=== PATIENT | male | born 1995 | race Two or more races ===

== ENCOUNTER 2019-07-08 06:38 | Emergency (ER) | payer OTHER ==
[2019-07-08] MEDS ORDERED: Ibuprofen 600 MG Tab PO ONE (07:13)
[2019-07-08] MEDS ORDERED: Amoxicillin/Clavulanate K 875-125 MG Tab PO STA (07:13)
[2019-07-08] MEDS ORDERED: Diphtheria,Pertussis(Acell),Tetanus Vaccine 0.5 ML Syringe IM ONE (07:14)
--- NOTE | 2019-07-08 07:15 | EDM.PDOC ---
ED HPI GENERAL MEDICAL PROBLEM - General Chief Complaint: Upper Extremity Injury/Pain Stated Complaint: hand injury Time Seen by Provider: 07/08/19 06:58 Source of Information: Reports: Patient History Limitations: Reports: No Limitations - History of Present Illness INITIAL COMMENTS - FREE TEXT/NARRATIVE: Mr. Cortez is a very pleasant 23-year-old man with no chronic medical problems, who states that he accidentally drilled into his left hand with a drill bit at work around 06:00 this morning. He presents with a puncture wound to his left thenar eminence. The wound is small, and not currently bleeding. Patient estimates that the drill may have penetrated about 1 inch into his muscle. The patient states that there is a possibility that there are woodchips in the wound. He is otherwise uninjured. The patient does not recall when his last tetanus vaccination was. The patient's PCP was ZHAO Quiroga. He received an influenza vaccine this season. Left Hand Pain Score (Numeric/FACES): 3 - Related Data Allergies Allergy/AdvReac Type Severity Reaction Status Date / Time Sulfa (Sulfonamide Allergy Rash Verified 07/08/19 06:50 Antibiotics) Home Meds: Home Meds Amoxicillin/Clavulanate K [Augmentin 875-125 MG] 1 tab PO Q12H #19 tablet [Rx] Past Medical History - Past Surgical History HEENT Surgical History: Reports: Tonsillectomy Social & Family History - Tobacco Use Smoking Status *Q: Never Smoker Tobacco Use Within Last Twelve Months: Vaping (nicotine) - Alcohol Use Alcohol Use History: Yes Alcohol Use Frequency: Rarely (every other month) - Recreational Drug Use Recreational Drug Use: No - Living Situation & Occupation Living situation: Reports: Single, Alone Occupation: Employed ([employer]) Review of Systems - Review of Systems Review Of Systems: Comprehensive ROS is negative, except as noted in HPI. ED EXAM, GENERAL - Physical Exam Exam: See Below Exam Limited By: No Limitations General Appearance: Alert, WD/WN, No Apparent Distress Extremities: Other (Small puncture wound to the patient's left thenar eminence. Not actively bleeding. The patient is able to move his thumb without significant difficulty, although there is some pain when he moves his thumb. No tingling or numbness to the left thumb or hand. Vascular supply of the left upper extremity is intact.) Course - Vital Signs Last Recorded V/S: Last Vital Signs Temp 36.2 C 07/08/19 06:47 Pulse 80 07/08/19 06:47 Resp 16 07/08/19 06:47 BP 132/75 07/08/19 06:47 Pulse Ox 100 07/08/19 06:47 - Orders/Labs/Meds Orders: Active Orders 24 hr Category Date Time Status Vaccines to be Administered [RC] PER UNIT ROUTINE Care 07/08/19 07:14 Active Hand 2V Lt [CR] Stat Exams 07/08/19 06:50 Taken Meds: Medications Discontinued Medications Generic Name Dose Route Start Last Admin Trade Name Freq PRN Reason Stop Dose Admin Amoxicillin/Clavulanate Potassium 1 tab 07/08/19 07:13 Augmentin 875 Mg/125 Mg PO 07/08/19 07:14 ONETIME STA Diphtheria/Tetanus/Acell Pertussis 0.5 ml 07/08/19 07:14 Adacel IM 07/08/19 07:15 .ONCE ONE Ibuprofen 600 mg 07/08/19 07:13 Motrin PO 07/08/19 07:14 ONETIME ONE - Re-Assessments/Exams Free Text/Narrative Re-Assessment/Exam: 07/08/19 07:09 2-view radiographs of the left hand appear to be grossly normal. No fracture or dislocation identified. No radiopaque foreign bodies seen. Formal read per the Radiologist pending. We will have the patient's RN irrigate the wound. The puncture wound itself is small enough and not bleeding that suturing is not necessary. I will start the patient on oral Augmentin and prescribe a 10-day course of the same. The patient declined an offer for opioid pain medication, but I will start him on ibuprofen. The patient will also receive a tetanus booster. I will write a note for work, to limit his left hand use for the next few days. Departure - Departure Time of Disposition: 07:24 Disposition: Home, Self-Care 01 Condition: Good Clinical Impression: Puncture wound of left hand - Discharge Information *PRESCRIPTION DRUG MONITORING PROGRAM REVIEWED*: Not Applicable *COPY OF PRESCRIPTION DRUG MONITORING REPORT IN PATIENT JOEL: Not Applicable Referrals: PCP,None [Primary Care Provider] - Forms: ED Department Discharge, ED Return to Work/School Form Additional Instructions: You were seen in the emergency room after accidentally drilling into your left thumb muscle at work. Work-up in the ER included x-rays of your left hand, which returned normal. No bone chips or metallic foreign bodies were seen. Keep your left hand clean with ordinary soap and water when you bathe. Pat dry and cover with a fresh Band-Aid, daily. Repeat during the day, if the Band-Aid gets bloody or dirty. You have been started on the antibiotic Augmentin, and a prescription for Augmentin has been sent to the [facility] located in the [facility]. Take 1 tablet of Augmentin every 12 hours, as prescribed, starting this evening, , 07/08/2019, as prescribed. Finish the entire prescription unless told otherwise by a doctor. Take [id number] ibuprofen, 3 tablets (600 mg) every 8 hours, with food, as needed for discomfort. A note for work limiting the use of your left hand until 07/12/2019, has been provided. You received a tetanus booster during your ER visit. If you follow these instructions, it is unlikely that the wound will become infected, however, if you develop inordinate pain, redness or swelling, or if the wound drains nonbloody material, please return to the ER for reevaluation. Sepsis Event Note - Evaluation Sepsis Screening Result: No Definite Risk - Focused Exam Vital Signs: Vital Signs Temp Pulse Resp BP Pulse Ox 07/08/19 06:47 36.2 C 80 16 132/75 100 Date Exam was Performed: 07/08/19 Time Exam was Performed: 07:23 - My Orders Last 24 Hours: My Active Orders 07/08/19 07:14 Vaccines to be Administered [RC] PER UNIT ROUTINE - Assessment/Plan Last 24 Hours: My Active Orders 07/08/19 07:14 Vaccines to be Administered [RC] PER UNIT ROUTINE
--- NOTE | 2019-07-08 07:46 | CR ---
Left hand: Two views of the left hand were obtained. Comparison: Prior left thumb study of 01/23/16. Joint spaces are preserved. No fracture, dislocation or other bony abnormality is identified. No soft tissue air or radiopaque foreign object is seen. Impression: 1. Nothing acute is seen on two-view left hand study. Diagnostic code #1 This report was dictated in [place] Standard Time
== END 2019-07-08 07:57 | disposition home or self-care (01) ==
LOC: JD.ED 06:38
DX: S61.432A Puncture wound without foreign body of left hand, initial encounter (principal); Z88.2 Allergy status to sulfonamides; Z90.49 Acquired absence of other specified parts of digestive tract; Z23 Encounter for immunization; W31.0XXA Contact with mining and earth-drilling machinery, initial encounter; Y99.0 Civilian activity done for income or pay
CPT/HCPCS: 73120; 90471; 90715; 99283; A9270

== ENCOUNTER 2020-08-17 17:34 | Emergency (ER) | payer BC, OTHER ==
--- NOTE | 2020-08-17 19:41 | CT ---
Head CT Technique: Multiple axial sections through the brain were obtained. Intravenous contrast was not utilized. Reconstructed coronal and sagittal images were obtained. Comparison: No prior intracranial imaging is available. Findings: Ventricles along with basal cisterns and sulci over the convexities are within normal limits for the patient's age. No abnormal parenchymal densities are seen. No evidence of intracranial hemorrhage. No midline shift or mass-effect is appreciated. Bone window settings were reviewed. Visualized mastoid sinuses and paranasal sinuses show nothing acute. Very minimal mucosal thickening is seen within the ethmoid and sphenoid sinus. No acute calvarial finding is appreciated. Impression: 1. Minimal sinus findings which are believed to be incidental. 2. No acute intracranial abnormality is appreciated. Diagnostic code #2
--- NOTE | 2020-08-17 20:09 | EDM.PDOC ---
ED HPI GENERAL MEDICAL PROBLEM - General Chief Complaint: Headache Stated Complaint: POSS ANEURYSM Time Seen by Provider: 08/17/20 18:53 Source of Information: Reports: Patient History Limitations: Reports: No Limitations - History of Present Illness INITIAL COMMENTS - FREE TEXT/NARRATIVE: The patient presents with a headache. He was doing lifts and he had 305 on and lifted and felt severe pain to the back of his head. He has no blurred or double vision. He has no numbness or weakness. He has no nausea or vomiting. This has never happened to him before. He has no other health problems. Onset: Sudden Duration: Minutes: Location: Reports: Head Quality: Reports: Sharp Severity: Severe Improves with: Reports: None Worsens with: Reports: None Associated Symptoms: Reports: Headaches. Denies: Chest Pain, Cough, Fever/Chills, Nausea/Vomiting, Shortness of Breath Posterior Head Pain Score (Numeric/FACES): 5 - Related Data Allergies Allergy/AdvReac Type Severity Reaction Status Date / Time Sulfa (Sulfonamide Allergy Rash Verified 07/08/19 06:50 Antibiotics) Home Meds: Home Meds . [No Known Home Meds] 08/17/20 [History] Past Medical History - Past Health History Medical/Surgical History: Denies Medical/Surgical History - Past Surgical History HEENT Surgical History: Reports: Tonsillectomy Social & Family History - Tobacco Use Tobacco Use Status *Q: Current Every Day Tobacco User Years of Tobacco use: 3 Packs/Tins Daily: 0.2 - Caffeine Use Caffeine Use: Reports: None - Recreational Drug Use Recreational Drug Use: No - Living Situation & Occupation Living situation: Reports: Single, Alone Occupation: Employed ([employer]) ED ROS GENERAL - Review of Systems Review Of Systems: See Below Constitutional: Reports: No Symptoms HEENT: Reports: No Symptoms Respiratory: Reports: No Symptoms Cardiovascular: Reports: No Symptoms Endocrine: Reports: No Symptoms GI/Abdominal: Reports: No Symptoms : Reports: No Symptoms Musculoskeletal: Reports: No Symptoms Neurological: Reports: Headache - Physical Exam Exam: See Below Exam Limited By: No Limitations General Appearance: Alert, No Apparent Distress Eye Exam: Bilateral Eye: EOMI Ears: Normal External Exam Nose: Normal Inspection Head Exam: Atraumatic, Normocephalic Neck: Normal Inspection, Supple, Non-Tender Respiratory/Chest: No Respiratory Distress, Lungs Clear, Normal Breath Sounds Cardiovascular: Regular Rate, Rhythm, No Edema, No Murmur GI/Abdominal: Soft, Non-Tender, No Organomegaly, No Mass Neuro Exam (Abbreviated): Alert, Oriented, No Motor/Sensory Deficits Course - Vital Signs Last Recorded V/S: Last Vital Signs Temp 99.1 F 08/17/20 18:16 Pulse 80 08/17/20 18:16 Resp 20 08/17/20 18:16 BP 131/67 08/17/20 18:16 Pulse Ox 98 08/17/20 18:16 - Re-Assessments/Exams Free Text/Narrative Re-Assessment/Exam: 08/17/20 20:[address] of his head and it looks good. He is feeling better. He did not want anything for his headache. I will discharge him home. Departure - Departure Time of Disposition: 20:10 Disposition: Home, Self-Care 01 Condition: Good Clinical Impression: Headache Qualifiers: Headache type: other headache syndrome Qualified Code(s): G44.89 - Other headache syndrome - Discharge Information Referrals: PCP,None [Primary Care Provider] - Additional Instructions: Take tylenol or motrin for your headache. Get some rest tonight. Please return if you are worse. Sepsis Event Note (ED) - Evaluation Sepsis Screening Result: No Definite Risk - Focused Exam Vital Signs: Vital Signs Temp Pulse Resp BP Pulse Ox 08/17/20 18:16 99.1 F 80 20 131/67 98
== END 2020-08-17 20:30 | disposition home or self-care (01) ==
LOC: JD.ED 17:34
DX: G44.89 Other headache syndrome (principal); Z72.0 Tobacco use; Z88.2 Allergy status to sulfonamides
CPT/HCPCS: 70450; 70450-26; 99284; 99284-25

== ENCOUNTER 2024-03-29 20:00 | Emergency (ER) | payer SELFPAY ==
[2024-03-29 20:24] LABS: BASOPHILS PERCENT AUTO 0.6 % (0.0-1.0); EOSINOPHILS ABSOLUTE AUTO 0.2 K/mm3 (0.0-0.4); EOSINOPHILS PERCENT AUTO 3.3 % (0.0-6.0); HEMATOCRIT 45.1 % (42.0-52.0); HEMOGLOBIN 15.9 gm/dl (14.0-18.0); IMMATURE GRAN ABSOLUTE AUTO 0.01 K/mm3 (0.00-0.05); IMMATURE GRAN PERCENT AUTO 0.2 % (0.0-0.4); LYMPHOCYTES ABSOLUTE AUTO 2.9 K/mm3 (1.0-4.8); LYMPHOCYTES PERCENT AUTO 44.6 % (24.0-44.0); MEAN CORPUSCULAR HEMOGLOBIN 30.5 pg (28.0-32.0); MEAN CORPUSCULAR HGB CONC 35.3 g/dl (32.0-36.0); MEAN CORPUSCULAR VOLUME 86.4 fl (83.0-99.0); MEAN PLATELET VOLUME 10.9 fl (9.4-12.4); MONOCYTES ABSOLUTE AUTO 0.6 K/mm3 (0.0-0.8); MONOCYTES PERCENT AUTO 9.7 % (0.0-8.0); NEUTROPHILS ABSOLUTE AUTO 2.7 K/mm3 (1.8-7.7); NEUTROPHILS PERCENT AUTO 41.6 % (41.0-71.0); PLATELET COUNT,PLT 223 K/mm3 (150-400); RED BLOOD CELL COUNT 5.22 M/mm3 (4.52-5.90); WHITE BLOOD CELL COUNT,WBC 6.41 K/mm3 (3.9-11.3)
[2024-03-29 20:50] LABS: A/G RATIO 1.3 (1-2); ALBUMIN 4.7 g/dl (3.4-5.0); ANION GAP 14.9 (5-15); BILIRUBIN TOTAL 0.6 mg/dL (0.2-1.0); BUN/CREATININE RATIO 13.6 (14-18); CALCIUM 9.3 mg/dL (8.5-10.1); CREATININE 1.4 mg/dL (0.7-1.3); EST CRCL DRUG DOSING (CG) 76.68 mL/min; POTASSIUM,K 3.9 mEq/L (3.5-5.1); PROTEIN TOTAL,TP 8.2 g/dl (6.4-8.2)
== END 2024-03-29 21:51 | disposition home or self-care (01) ==
LOC: JD.ED 20:00
DX: R07.89 Other chest pain (principal); Z88.2 Allergy status to sulfonamides
CPT/HCPCS: 36415; 71045; 71045-26; 80053; 84484; 85025; 85379; 93005; 99285